=== PATIENT | female | born 1985 | race American Indian/Alaskan Native ===

== ENCOUNTER 2019-07-04 17:57 | Emergency (ER) | payer OTHER ==
--- NOTE | 2019-07-04 19:52 | Event Note ---
ED Screening Note Date of service: 07/04/19 Time: 19:47 ED Screening Note: 33 y/o female comes in for chest discomfort and headache intermittent times 3-4 months. Vomited times 3 today. Has been dealing with elevated BP. This initial assessment/diagnostic orders/clinical plan/treatment(s) is/are subject to change based on patients health status, clinical progression and re- assessment by fellow clinical providers in the ED. Further treatment and workup at subsequent clinical providers discretion. Patient/guardian urged not to elope from the ED as their condition may be serious if not clinically assessed and managed. Initial orders include:
[2019-07-04] MEDS ORDERED: BUTALB/ACETAMINOPHEN/CAFFEINE TAB PO ONE (20:38)
[2019-07-04] MEDS ORDERED: ONDANSETRON 4 MG ODT TAB PO ONE (20:38)
[2019-07-04] MEDS ORDERED: ASPIRIN 325 MG TAB PO ONE (20:38)
[2019-07-04 20:43] LABS: Basophils # (Auto) 0.1 K/mm3 (0.0-0.1); Basophils % (Auto) 1.1 % (0.0-1.8); Eosinophils # (Auto) 0.2 K/mm3 (0.0-0.4); Eosinophils % (Auto) 2.9 % (0.0-4.3); Hematocrit 41.2 % (30.3-42.9); Hemoglobin 13.6 gm/dl (10.1-14.3); Lymphocytes # (Auto) 1.6 K/mm3 (1.2-5.4); Lymphocytes % (Auto) 21.3 % (13.4-35.0); Mean Corpuscular HGB Conc 33 % (30-34); Mean Corpuscular Volume 83 fl (79-97); Monocytes # (Auto) 0.5 K/mm3 (0.0-0.8); Monocytes % (Auto) 6.2 % (0.0-7.3); Platelet Count 385 K/mm3 (140-440); Red Blood Count 4.97 M/mm3 (3.65-5.03); Red Cell Distribution Width 14.7 % (13.2-15.2)
[2019-07-04 21:09] LABS: Alanine Aminotransferase 15 units/L (7-56); Albumin 4.3 g/dL (3.9-5); BUN/Creatinine Ratio 13; Blood Urea Nitrogen 8 mg/dL (7-17); Calcium 9.2 mg/dL (8.4-10.2); Hemolysis Index 32
--- NOTE | 2019-07-04 21:52 | XRay Report ---
CHEST 2 VIEWS INDICATION: MAIN: sob,cough and rales; CHEST PAIN. COMPARISON: None. FINDINGS: Support devices: None. Heart: Within normal limits. Lungs/Pleura: No acute air space or interstitial disease. No significant pleural effusion. IMPRESSION: No acute findings. Signer Name: Otis Sims MD Signed: 07/04/2019 9:47 PM Workstation Name: [email or web address]
--- NOTE | 2019-07-05 01:12 | Emergency Department Report ---
ED Chest Pain HPI - General Chief Complaint: Chest Pain Stated Complaint: CHEST PAIN, HEADACHE Time Seen by Provider: 07/04/19 19:47 Source: patient Mode of arrival: Ambulatory Limitations: No Limitations - History of Present Illness Initial Comments: Patient is a 33-year-old -Chinese female with a history of hypertension and chronic intermittent headaches and chest pain who presented to the ED with acute exacerbation of her chronic pain characterized by left-sided chest pain, nausea and vomiting and persistent headache and elevated blood pressure for the last 4 months, worse in the last 12 hours. Patient denies dizziness, syncope, cough, shortness of breath, change in vision, palpitations, back pain, abdominal pain, numbness and tingling or weakness of upper and lower extremities bilaterally, loss of consciousness, fever and chills, nasal and sinus congestion, sore throat or diarrhea. MD Complaint: chest pain, other (nausea and vomiting; headache; uncontrolled hypertension) -: Sudden, week(s), month(s) (4) Onset: awoke with symptoms Pain Location: left chest Pain Radiation: LUE Severity: moderate Severity scale (0 -10): 6 Quality: tightness, aching, sharp Consistency: intermittent Improves With: nothing Worsens With: nothing re: nausea, vomting Other Symptoms: denies: cough, fever, syncope, rash, acid taste in mouth, leg swelling, palpitations, burping, other Treatments Prior to Arrival: none Aspirin use within the Past 7 Days: (0) No - Related Data On Oral Contraceptives: No Previous Rx's Medication Instructions Recorded Last Taken Type Butalb/Acetamin/Caff 50-325-40 1 - 2 tab PO Q6HR PRN #12 tab 07/05/19 Unknown Rx [Fioricet 50-325-40] Cyclobenzaprine [Flexeril] 10 mg PO Q8H PRN #15 tablet 07/05/19 Unknown Rx Ibuprofen [Motrin] 600 mg PO Q8H PRN #24 tablet 07/05/19 Unknown Rx Ondansetron [Zofran Odt] 4 mg PO Q6HR PRN #15 tab.rapdis 07/05/19 Unknown Rx Allergies Allergy/AdvReac Type Severity Reaction Status Date / Time No Known Allergies Allergy Unverified 07/04/19 18:01 Heart Score - HEART Score History: Slightly suspicious EKG: Normal Age: < 45 Risk factors: 1-2 risk factors Troponin: < normal limit HEART Score: 1 - Critical Actions Critical Actions: 0-3 pts:0.9-1.7%risk of adverse cardiac event.Candidate for discharge ED Review of Systems ROS: Stated complaint: CHEST PAIN, HEADACHE Other details as noted in HPI Constitutional: denies: chills, fever Eyes: denies: eye pain, eye discharge, vision change ENT: denies: ear pain, throat pain Respiratory: denies: cough, shortness of breath, SOB with exertion, wheezing Cardiovascular: chest pain (left sided chest pain). denies: palpitations, dyspnea on exertion, syncope, paroxysmal nocturnal dyspnea Endocrine: no symptoms reported Gastrointestinal: nausea, vomiting. denies: abdominal pain, diarrhea Genitourinary: denies: urgency, dysuria, discharge Musculoskeletal: denies: back pain, joint swelling, arthralgia Skin: denies: rash, lesions Neurological: headache. denies: weakness, paresthesias Psychiatric: denies: anxiety, depression Hematological/Lymphatic: denies: easy bleeding, easy bruising ED Past Medical Hx - Past Medical History Hx Hypertension: Yes - Surgical History Past Surgical History?: No - Social History Smoking Status: Never Smoker Substance Use Type: Alcohol - Medications Home Medications: Home Medications Medication Instructions Recorded Confirmed Last Taken Type Butalb/Acetamin/Caff 50-325-40 1 - 2 tab PO Q6HR PRN #12 tab 07/05/19 Unknown Rx [Fioricet 50-325-40] Cyclobenzaprine [Flexeril] 10 mg PO Q8H PRN #15 tablet 07/05/19 Unknown Rx Ibuprofen [Motrin] 600 mg PO Q8H PRN #24 tablet 07/05/19 Unknown Rx Ondansetron [Zofran Odt] 4 mg PO Q6HR PRN #15 tab.rapdis 07/05/19 Unknown Rx ED Physical Exam - General Limitations: No Limitations General appearance: alert, in no apparent distress - Head Head exam: Present: atraumatic, normocephalic, normal inspection - Eye Eye exam: Present: normal appearance, PERRL, EOMI Pupils: Present: normal accommodation - ENT ENT exam: Present: normal exam, normal orophraynx, mucous membranes moist, TM's normal bilaterally, normal external ear exam - Neck Neck exam: Present: normal inspection, full ROM. Absent: tenderness, lymphadenopathy - Respiratory Respiratory exam: Present: normal lung sounds bilaterally, chest wall tenderness (Palpable left-sided chest wall tenderness). Absent: respiratory distress - Cardiovascular Cardiovascular Exam: Present: regular rate, normal rhythm, normal heart sounds. Absent: systolic murmur, diastolic murmur, rubs, gallop - GI/Abdominal GI/Abdominal exam: Present: soft, normal bowel sounds. Absent: tenderness, hyperactive bowel sounds - Extremities Exam Extremities exam: Present: normal inspection, full ROM, normal capillary refill - Back Exam Back exam: Present: normal inspection, full ROM. Absent: tenderness, CVA tenderness (L), muscle spasm, paraspinal tenderness - Neurological Exam Neurological exam: Present: alert, oriented X3, CN II-XII intact, normal gait, reflexes normal - Psychiatric Psychiatric exam: Present: normal affect, normal mood, anxious - Skin Skin exam: Present: warm, dry, intact, normal color. Absent: rash ED Course Vital Signs 07/04/19 07/04/19 07/05/19 18:12 19:52 00:56 Temperature 97.6 F Pulse Rate 96 H 80 84 Respiratory 16 18 Rate Blood Pressure 172/113 Blood Pressure 150/100 147/98 [Right] O2 Sat by Pulse 98 100 Oximetry 07/05/19 01:35 Temperature Pulse Rate 75 Respiratory 18 Rate Blood Pressure Blood Pressure 147/107 [Right] O2 Sat by Pulse 99 Oximetry SUSAN score - Susan Score Age > 65: (0) No Aspirin use within the Past 7 Days: (0) No 3 or more CAD Risk Factors: (0) No 2 or more Angina events in past 24 hrs: (0) No Known CAD with more than 50% Stenosis: (0) No Elevated Cardiac Markers: (0) No ST Deviation Greater than 0.5mm: (0) No SUSAN Score: 0 ED Medical Decision Making - Lab Data Result diagrams: 07/04/19 20:29 07/04/19 20:29 - EKG Data EKG shows normal: sinus rhythm Rate: normal - EKG Data Interpretation: normal EKG - Radiology Data Radiology results: report reviewed, image reviewed Chest x-ray shows no acute cardiopulmonary abnormalities, pneumonitis, pleural effusion or pneumothorax. - Medical Decision Making This is a 33-year-old -Chinese female with a history of hypertension and chronic intermittent headaches and chest pain who presented to the ED with acute exacerbation of her chronic pain characterized by left-sided chest pain, nausea and vomiting and persistent headache and elevated blood pressure for the last 4 months, worse in the last 12 hours. In the ED, patient is alert and oriented x3 and is not in any distress. The initial vital signs showed hypertension but improved significantly. Lab test results were reviewed and are all nonactionable including initial and repeat troponin as well as d-dimer levels. Chest x-ray shows no acute cardiopulmonary abnormalities or pneumonitis. Patient was treated for pain in the ED including for headache and on reevaluation, patient's pain is well controlled medications. Patient's heartscore is 1 and the patient is PERC negative. Patient was discharged home on medications for pain and advised to follow-up with her primary care physician for further evaluations especially on her hypertension. Patient was advised to return to the ED immediately if symptoms get worse. - Differential Diagnosis CAD; PE; Pneumonia; muscle strain; tension headache; anxiety Critical care attestation.: If time is entered above; I have spent that time in minutes in the direct care of this critically ill patient, excluding procedure time. ED Disposition Clinical Impression: Nonspecific chest pain, Uncontrolled stage 2 hypertension, Anxiety as acute reaction to exceptional stress Tension-type headache Qualifiers: Headache chronicity pattern: acute headache Intractability: not intractable Qualified Code(s): G44.209 - Tension-type headache, unspecified, not intractable Disposition: DC-01 TO HOME OR SELFCARE Is pt being admited?: No Does the pt Need Aspirin: No Condition: Stable Instructions: Chest Pain (ED), Costochondritis (ED), Hypertension (ED), Anxiety (ED) Additional Instructions: Your lab test results and all imaging test results are all nonactionable and normal. Your symptoms are not likely coronary artery disease associated but a combination of musculoskeletal and anxiety. Your blood pressure is poorly controlled because of inadequate medication therapy. Therefore take medications with food, drink plenty fluids and follow-up with your primary care physician in 5 to 7 days for reevaluation. Prescriptions: Butalb/Acetamin/Caff 50-325-40 [Fioricet 50-325-40] 1 - 2 tab PO Q6HR PRN #12 tab PRN Reason: Headache Cyclobenzaprine [Flexeril] 10 mg PO Q8H PRN #15 tablet PRN Reason: Muscle Spasm Ibuprofen [Motrin] 600 mg PO Q8H PRN #24 tablet PRN Reason: Pain Ondansetron [Zofran Odt] 4 mg PO Q6HR PRN #15 tab.rapdis PRN Reason: Nausea Referrals: DINESH STEPHENS MD [Staff Physician] - 7-10 days Forms: Work/School Release Form(ED) Time of Disposition: 01:14 Print Language: [place]
[2019-07-05] MEDS ORDERED: KETOROLAC 60 MG/2 ML INJ IM ONE (01:31)
[2019-07-05 01:36] VITALS: BP 147/107
== END 2019-07-05 01:35 | disposition home or self-care (01) ==
LOC: ED 17:57
DX: G44.209 Tension-type headache, unspecified, not intractable (principal); R07.89 Other chest pain; I10 Essential (primary) hypertension; F41.9 Anxiety disorder, unspecified; Z79.899 Other long term (current) drug therapy
CPT/HCPCS: 36415; 71046; 80053; 84484; 85025; 85379; 93005; 93010; 96372; Q0162